=== PATIENT | female | born 1980 | race Caucasian/White ===

== ENCOUNTER 2018-10-23 16:32 | Emergency (ER) | payer OTHER ==
[2018-10-23 16:37] VITALS: RESP 18
--- NOTE | 2018-10-23 17:47 | US ---
EXAMINATION TYPE: US venous doppler duplex LE RT DATE OF EXAM: 10/23/2018 5:32 PM COMPARISON: NONE CLINICAL HISTORY: Pain. Superficial right lower leg varicose vein with skin redness and pain today SIDE PERFORMED: Right TECHNIQUE: The lower extremity deep venous system is examined utilizing real time linear array sonog rossy with graded compression, doppler sonography and color-flow sonography. VESSELS IMAGED: Common Femoral Vein Deep Femoral Vein Greater Saphenous Vein * Femoral Vein Popliteal Vein Small Saphenous Vein * Proximal Calf Veins (* superficial vessels) Right Leg: Negative for DVT; is positive for Superficial Venous thrombosis for short segment at anthony ent's area of pain/skin redness. IMPRESSION: No evidence of deep venous thrombosis in the right leg. There is superficial vein thrombo sis in the calf.
--- NOTE | 2018-10-23 18:02 | ED ---
Lower Extremity Injury HPI - General Chief Complaint: Extremity Injury, Lower Stated Complaint: poss blood clot rt leg Time Seen by Provider: 10/23/18 16:37 Source: patient Mode of arrival: ambulatory Limitations: no limitations - History of Present Illness Initial Comments: 38-year-old female with no significant past medical history presenting today for chief complaint of pain and redness swelling at varicose vein of the right anterior leg. Patient states that 3 days ago she noticed tenderness and redness at the site of varicose vein. She states now it appears slightly hard and there is surrounding redness. Patient's family's concern of blood clots. Patient denies any history of DVT or pulmonary embolus. She denies any recent surgeries. Patient denies any recent immobilization, fractures or history of cancer. Patient denies any chest pain shortness of breath fever chills or night sweats. Patient denies pain to the posterior right calf. Patient denies any diffuse Swelling. Patient denies lower extremity edema. Remaining review of system negative. Upon arrival patient afebrile and appears well. - Related Data Previous Rx's Medication Instructions Recorded Docusate [Colace] 100 mg PO BID #30 capsule 11/01/14 Hydrocodone/Acetaminophen [Nesbit 1 each PO Q4HR PRN #30 tab 11/01/14 5-325] Allergies Allergy/AdvReac Type Severity Reaction Status Date / Time pseudoephedrine HCl Allergy Rash/Hives Verified 10/23/18 16:35 [From Zeinab] ZICAM Allergy Rash/Hives Uncoded 10/23/18 16:35 Review of Systems ROS Statement: Those systems with pertinent positive or pertinent negative responses have been documented in the HPI. ROS Other: All systems not noted in ROS Statement are negative. Past Medical History Past Medical History: No Reported History History of Any Multi-Drug Resistant Organisms: None Reported Past Surgical History: Section, Tubal Ligation Additional Past Surgical History / Comment(s): hip surgery at age 3; wart removed from buttock as teen Past Anesthesia/Blood Transfusion Reactions: No Reported Reaction Past Psychological History: No Psychological Hx Reported Smoking Status: Current every day smoker Past Alcohol Use History: Occasional Past Drug Use History: Marijuana - Past Family History Mother Family Medical History: No Reported History General Exam - General Exam Comments Initial Comments: General: The patient is awake and alert, in no distress, and does not appear acutely ill. Eye: Pupils are equal, round and reactive to light, extra-ocular movements are intact. No nystagmus. There is normal conjunctiva bilaterally. No signs of icterus. Cardiovascular: There is a regular rate and rhythm. No murmur, rub or gallop is appreciated. Respiratory: Lungs are clear to auscultation, respirations are non-labored, breath sounds are equal. No wheezes, stridor, rales, or rhonchi. Musculoskeletal: Normal ROM, no tenderness. Strength 5/5. Sensation intact. DP pulses equal bilaterally 2+. Varicose vein apparent on the right lower anterior leg, redness, warmth, tender to touch. No pain to palpation of the right posterior calf, (-) homans. No LE edema Neurological: A&O x 3. CN II-XII intact, There are no obvious motor or sensory deficits. Coordination appears grossly intact. Speech is normal. Skin: Skin is warm and dry and no rashes or lesions are noted. Psychiatric: Cooperative, appropriate mood & affect, normal judgment. Limitations: no limitations Course Vital Signs 10/23/18 10/23/18 16:33 18:12 Temperature 99.1 F 98.0 F Pulse Rate 68 72 Respiratory 18 18 Rate Blood Pressure 132/88 125/81 O2 Sat by Pulse 99 99 Oximetry Medical Decision Making - Medical Decision Making 38yo female presenting for possible blood clot. There is superficial blood clot in the right lower leg. Apparently superficial thrombophlebitis on physical examination. Patient is encouraged to apply warm compresses and take NSAIDs. Patient has no risk factors for DVTs. She appears well patient was breath I discussed the case with [facility] provider Dr. Mcneil. At this time we feel patient is stable for discharge. Return parameters were discussed at length the patient is discharged appearing well agreeable care plan Disposition Clinical Impression: Superficial vein thrombosis Disposition: HOME SELF-CARE Condition: Good Instructions (If sedation given, give patient instructions): Superficial Thrombophlebitis (ED) Additional Instructions: Please use medication as discussed. Please follow-up with family doctor in the next 2 days. Apply warm compresses as discussed. Please return to emergency room if the symptoms increase or worsen or for any other concerns-swelling of leg, increasing pain, chest pain. Is patient prescribed a controlled substance at d/c from ED?: No Referrals: Jerri Terrazas MD [Primary Care Provider] - 1-2 days Time of Disposition: 18:01
[2018-10-23 18:12] VITALS: BP 125/81; PULSE 72; TEMP 98
== END 2018-10-23 18:13 | disposition home or self-care (01) ==
LOC: EC 16:32
DX: I82.811 Embolism and thrombosis of superficial veins of right lower extremity (principal); F17.200 Nicotine dependence, unspecified, uncomplicated; Z88.8 Allergy status to other drugs, medicaments and biological substances
CPT/HCPCS: 99283

== ENCOUNTER → 2020-01-13 | Outpatient (CLI) | payer OTHER ==
--- NOTE | 2020-01-13 23:12 | XR ---
EXAMINATION TYPE: XR lumbar spine 2 or 3V DATE OF EXAM: 01/13/2020 COMPARISON: None HISTORY: Low back pain TECHNIQUE: Three-view lumbar spine FINDINGS: There is scoliosis present. The convexities to the right centered at L3. There 5 lumbar-typ e vertebral bodies. The pedicles are intact. Disc heights are preserved. Vertebral body heights are p reserved. IMPRESSION: 1. Scoliosis.
== END | disposition home or self-care (01) ==
LOC: RADXRMAIN 15:55
PROVIDERS: ATTEND Family Medicine
DX: M41.9 Scoliosis, unspecified (principal)
CPT/HCPCS: 72100

== ENCOUNTER → 2021-06-26 | Outpatient (CLI) | payer OTHER ==
--- NOTE | 2021-06-28 10:34 | MM ---
Reason for exam: screening (asymptomatic). Baseline mammogram. Physical Findings: A clinical breast exam by your physician is recommended on an annual basis and results should be correlated with mammographic findings. MG Screening Mammo w CAD Bilateral CC and MLO view(s) were taken. There are scattered fibroglandular densities. There is no discrete abnormality. ASSESSMENT: Negative, BI-RAD 1 RECOMMENDATION: Routine screening mammogram of both breasts in 1 year.
== END | disposition home or self-care (01) ==
LOC: RADMAMWWP 07:44
PROVIDERS: ATTEND Family Medicine
DX: Z12.31 Encounter for screening mammogram for malignant neoplasm of breast (principal)
CPT/HCPCS: 77067

== ENCOUNTER → 2024-05-25 | Outpatient (CLI) | payer OTHER ==
--- NOTE | 2024-05-25 08:31 | MM ---
Reason for Exam: Screening (asymptomatic). Last mammogram was performed 2 year(s) and 11 month(s) ago. Patient History: Menarche at age 11. First Full-Term at age 29. Late child-bearing (after 29). Premenopausal. Risk Values: Lina 5 year model risk: 1.1%. NCI Lifetime model risk: 13.1%. Prior Study Comparison: 06/26/2021 Bilateral Screening Mammogram, [facility]. Tissue Density: There are scattered areas of fibroglandular density. Findings: Analyzed By CAD. There is no suspicious group of microcalcifications or new suspicious mass in either breast. Overall Assessment: Negative, BI-RAD 1 Management: Screening Mammogram of both breasts in 1 year. . Patient should continue monthly self-breast exams. A clinical breast exam by your physician is recommended on an annual basis. This exam should not preclude additional follow-up of suspicious palpable abnormalities. Note on Lina scores and lifetime risk: 1. A Lina score greater than 3% is considered moderate risk. If this is the case, consider specialist referral to assess eligibility for a risk reducing agent. 2. If overall lifetime risk for the development of breast cancer is 20% or higher, the patient may qualify for future screening with alternating mammogram and breast MRI. [facility], , 05/25/2024 8:27 AM. Electronically signed and approved by: Kevin Oakes M.D.
== END | disposition home or self-care (01) ==
LOC: RADMAMWWP 08:09
PROVIDERS: ATTEND Family Medicine
DX: Z12.31 Encounter for screening mammogram for malignant neoplasm of breast (principal); R92.323 Mammographic fibroglandular density, bilateral breasts
CPT/HCPCS: 77067